=== PATIENT | male | born 1955 | race Caucasian/White ===

== ENCOUNTER → 2016-12-15 | Outpatient (CLI) | payer OTHER, MEDICARE ==
[~2016-12-15] MED LIST: AZOR 5/20 MG TA1 TAB; AZOR PO; B/P MED; B/P MEDICATION PO; BYSTOLIC10 MG; DARVOCET-N 1001 TAB PO; IBUPROFEN PO; INDOMETHACIN25 MG PO; LODINE PO; LORTAB 7.5-5001 TAB PO; NORVASC PO; PAXIL PO; SKELAXIN PO; SYNTHROID PO; TEKTURNA; ZYLOPRIM PO; [UNRECOGNIZED DRUG - REMARK]
--- NOTE | ~2016-12-15 | CR150 ---
[facility] A Service of [facility] RADIOLOGY TEXT RESULTS PATIENT: BETHANY BURNS LOCATION: [facility] : 57 UNIT #: [id number] AGE: [address]: Meryl Reeves APRN SEX: M ORDER DR: [id number] [facility] [address] [place], [place] [address] [id number] O MR#: [id number] Acc #: [id number] NAME: BETHANY BURNS : 1955 SEX: M STUDY DATE/TIME: 12/15/2016 11:10 UNIT: [facility] ROOM: STUDY DESCRIPTION: CR Hip Min 2 Views Lt Attending Physician: Meryl Reeves A.P.R.N. Referring Physician: Meryl Reeves A.P.R.N. Ordering Physician: Meryl Reeves A.P.R.N. Primary Care Physician: Meryl Reeves A.P.R.N. MEDICAL IMAGING REPORT This report is preliminary unless electronic signature is present EXAM Left hip, 2 views, 12/15/2016 HISTORY Left hip pain for 1 year, worsening in the past month with no known injury. FINDINGS 2 views of the left hip demonstrate no fracture. There is degenerative change with minimal axial narrowing of the left hip joint with osteophytic spurring about the left femoral head and left acetabulum. The bones are normally mineralized. There is no soft tissue abnormality. IMPRESSION Degenerative change about the left hip. No acute abnormality. Dictated by... Donato Hammond M.D. THIS IS AN ELECTRONICALLY VERIFIED REPORT Donato Hammond M.D. at 12/16/2016 9:02 AM JR/danny TD: 12/15/2016 16:37 JOB #: [id number] MEDICAL IMAGING REPORT Page 1 of 1 COPY
== END | disposition home or self-care (01) ==
LOC: CRAD 10:59
DX: M25.552 Pain in left hip (principal); E11.9 Type 2 diabetes mellitus without complications
CPT/HCPCS: 73502